=== PATIENT | female | born 1990 | race Caucasian/White ===

== ENCOUNTER 2023-08-05 11:33 | Emergency (ER) | payer BC, SELFPAY ==
[2023-08-05 11:38] VITALS: BP 107/72; PULSE 71; RESP 20; TEMP 36.6; O2SAT 99
[2023-08-05 13:15] LABS: Abs Immature Grans 0.01 10^3/uL (0.0-0.06); Absolute Basophil Count 0.05 10^3/uL (0.0-0.2); Absolute Eosinophil Count 0.04 10^3/uL (0.0-0.7); Absolute Lymphocyte Count 1.82 10^3/uL (1.2-3.4); Absolute Monocyte Count 0.31 10^3/uL (0.1-0.8); Absolute Neutrophil Count 3.29 10^3/uL (1.2-6.7); Basophils % 0.9 %; Eosinophils % 0.7 %; HCT 41.4 % (36.0-46.0); HGB 14.8 g/dL (11.2-15.7); Immature Grans % 0.2 %; MCH 33.1 pg (27.0-33.0); MCHC 35.7 % (32.0-36.0); MCV 93 fL (80-95); MPV 10.3 fL (8.0-11.0); Monocytes % 5.6 %; Neutrophils % 59.6 %; Platelet Count 259 10^3/uL (130-400); RBC 4.47 10^6/uL (3.93-5.22); RDW 11.4 % (11.7-14.6); RDW-SD 38.7 fL; WBC 5.52 10^3/uL (4.4-10.8)
[2023-08-05] MEDS: Ketorolac 15 MG/ML VIAL IVP (13:25)
[2023-08-05] MEDS: Droperidol 5 MG/2 ML VIAL 2.5 MG IVP (13:26)
[2023-08-05 13:35] VITALS: BP 122/75; PULSE 78; RESP 20; TEMP 36.4; O2SAT 94
[2023-08-05 13:35] LABS: ALT 23 U/L (14-59); AST 20 U/L (15-37); Albumin 4.7 g/dL (3.4-5.0); Alkaline Phosphatase 76 U/L (46-116); Anion Gap 11.2 mmol/L (3-11); BUN 10 mg/dL (7-18); Bilirubin, Total 1.41 mg/dL (0.2-1.0); CO2 26.8 mmol/L (21.0-32.0); CREATININE 0.9 mg/dL (0.55-1.02); Calcium 9.6 mg/dL (8.5-10.1); Chloride 105 mmol/L (98-107); Glucose 89 mg/dL (74-106); Potassium 3.6 mmol/L (3.5-5.1); Sodium 143 mmol/L (136-145); Total Protein 7.7 g/dL (6.4-8.2)
--- NOTE | 2023-08-05 13:37 | W.ED.GENAD ---
Discharge Plan Disposition Patient Disposition: Home Condition: Stable Discharge Details Clinical Impression: Anxiety, Headache Primary Care Provider: Unknown,Unknown ED Provider: Francisco Kennedy Home Meds and New Rx's Prescriptions: Continued cholecalciferol (vitamin D3) 25 mcg (1,000 unit) capsule See Rx Instructions PO .COMPLEX Rx Instructions: orally; dose unknown Discharge Instructions Instructions: Headache, Adult ED, Anxiety, Adult ED Additional Instructions: Please follow-up with Dr. Anglin. She will be happy to see you in follow-up. Please contact your primary care physician to arrange follow-up. Return to the ER immediately for any worsening or new concerning symptoms. Referrals: [facility] [Provider Group] Discharge Data Discharge Date/Time-TO BE ENTERED AT DEPARTURE: 08/05/23 13:50 HPI General Mode of arrival: ambulatory. Date/Time Provider Initiated Documentation: 08/05/23 11:39. Limitations to Documentation: no limitations. Information obtained by: patient. HPI Narrative: 32yo female with history of migraine headaches, here with chief complaint of migraine. Patient notes chronic headaches. Seems to be more frequent recently. She has associated light sensitivity and loss of appetite. 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 She further characterizes this feeling noting changes in behavior when experiencing headaches - for example she has made statements that she later regrets. Headache is not sudden onset and not currently severe. Worse yesterday. She has no associated dizziness. No visual changes. No fever or neck stiffness. Patient notes prior extensive workup including advanced diangostic brain imaging has been performed and non diagnostic. Patient contacted neurology office and staff advised she be evaluated in the ED. Related Data Home Medications ?Medication ?Instructions ?Recorded ?Confirmed cholecalciferol (vitamin D3) 25 See Rx Instructions PO .COMPLEX 01/20/22 05/18/22 mcg (1,000 unit) capsule Allergies Allergy/AdvReac Type Severity Reaction Status Date / Time lactose Allergy Verified 05/18/22 14:02 General Stated Complaint: Headache MATTHEW: 3 Review of Systems All systems reviewed & are unremarkable except as noted in HPI and below Constitutional Constitutional: Reports as per HPI, Denies fever(s) and Reports headache(s) ENT Ears, Nose, Mouth, and Throat: Reports headache(s) Cardiovascular Cardiovascular: Denies dyspnea Respiratory Respiratory: Denies dyspnea Neurologic Neurologic: Reports as per HPI and Reports headache(s) Psychiatric Psychiatric: Reports anxiety Exam Const General: cooperative and no acute distress HENMT Head: normocephalic and atraumatic Mouth: moist mucous membranes Eyes Sclera: normal sclerae EOM: EOM intact bilaterally Neck Neck: trachea midline Resp Auscultation: clear to auscultation bilaterally, no rales, no rhonchi and no wheezes Cardio Rate: regular rate and not tachycardic Rhythm: regular rhythm GI Palpation: soft, not firm, no guarding, no masses, not rigid and nontender Skin General skin exam: no rashes or lesions noted Neuro General: patient alert, patient awake, patient oriented x3 and tone normal Cranial Nerves: CN's II-XI intact bilaterally Cognition: normal cognition Speech: speech normal Gait: normal gait Motor: strength 5/5 throughout Sensory Exam: no sensory deficits noted Coordination: [id number] test normal Other: rapid alternating movement nl Extrem General: no edema Psych Appearance: grossly normal Mental Status: mental status grossly normal Speech and Movement: speech and movement normal Affect: anxious affect Course Vital Signs Vital signs: Vital Signs Temperature 36.6 C 08/05/23 11:38 Pulse 71 08/05/23 11:38 Respiratory Rate 20 08/05/23 11:38 Blood Pressure 107/72 08/05/23 11:38 Pulse Oximetry 99 08/05/23 11:38 Temperature 36.4 C 08/05/23 13:35 Temperature Source Skin 08/05/23 13:35 Pulse 78 08/05/23 13:35 Respiratory Rate 20 08/05/23 13:35 Blood Pressure 122/75 08/05/23 13:35 Blood Pressure Mean 90 08/05/23 13:35 Blood Pressure Position Sitting 08/05/23 13:35 Pulse Oximetry 94 08/05/23 13:35 Oxygen Delivery Method Room Air 08/05/23 13:35 Oxygen Flow Rate 0 08/05/23 13:35 Pain Level 0 08/05/23 13:35 Lab/Test Results Lab/Test Results: Laboratory Tests Range/Units 08/05/23 13:05 WBC (4.4-10.8) 10^3/uL 5.52 RBC (3.93-5.22) 10^6/uL 4.47 Hgb (11.2-15.7) g/dL 14.8 Hct (36.0-46.0) % 41.4 MCV (80-95) fL 93 MCH (27.0-33.0) pg 33.1 H MCHC (32.0-36.0) % 35.7 RDW (11.7-14.6) % 11.4 L Plt Count (130-400) 10^3/uL 259 MPV (8.0-11.0) fL 10.3 Immature Gran % % 0.2 Neutrophils % % 59.6 Lymphocytes % % 33.0 Monocytes % % 5.6 Eosinophils % % 0.7 Basophils % % 0.9 Nucleated RBC % (0.0-0.3) % 0.0 Absolute Neutrophils (1.2-6.7) 10^3/uL 3.29 Absolute Lymphocytes (1.2-3.4) 10^3/uL 1.82 Absolute Monocytes (0.1-0.8) 10^3/uL 0.31 Absolute Eosinophils (0.0-0.7) 10^3/uL 0.04 Absolute Basophils (0.0-0.2) 10^3/uL 0.05 Sodium (136-145) mmol/L 143 Potassium (3.5-5.1) mmol/L 3.6 Chloride (98-107) mmol/L 105 Carbon Dioxide (21.0-32.0) mmol/L 26.8 Anion Gap (3-11) mmol/L 11.2 H BUN (7-18) mg/dL 10 Creatinine (0.55-1.02) mg/dL 0.9 Est GFR (CKD-EPI 2020) (mL/min/1.73m2) 88.20 Glucose (74-106) mg/dL 89 Calcium (8.5-10.1) mg/dL 9.6 Total Bilirubin (0.2-1.0) mg/dL 1.41 H AST (15-37) U/L 20 ALT (14-59) U/L 23 Alkaline Phosphatase (46-116) U/L 76 Total Protein (6.4-8.2) g/dL 7.7 Albumin (3.4-5.0) g/dL 4.7 Medical Decision Making 32yo female with history of migraine headaches, PTSD, anxiety, here with increased frequency of headaches and associated perceived behavioral changes when experiencing headaches. Neurologically intact examination. No signs consistent with meningeal inflammation. History is not consistent with acute hemorrhage. Patient was treated with low dose ketamine for her headache. I spoke with Dr. Kelley and discussed ED presentation and course. She would be happy to see the patient in followup and does not have further recommendations at this time. On reassessment patient noted feeling more anxious and requesting discharge. I offered additional treatment and she declined. Plan for discharge with outpatient followup with neurology. Disposition decision was made weighing the risks and benefits of hospitalization versus outpatient treatment, the risk for further decompensation, and the patient's wishes. The patient was stable and requested discharge. Prior to discharge, my usual and customary return precautions were reviewed with the patient - this included follow-up instructions and reason to return to the emergency department if condition worsens, does not improve as expected, or other new concerns arise. Lab Data Lab results reviewed: Yes I reviewed the patient's lab results. Labs: Laboratory Tests Range/Units 08/05/23 13:05 WBC (4.4-10.8) 10^3/uL 5.52 RBC (3.93-5.22) 10^6/uL 4.47 Hgb (11.2-15.7) g/dL 14.8 Hct (36.0-46.0) % 41.4 MCV (80-95) fL 93 MCH (27.0-33.0) pg 33.1 H MCHC (32.0-36.0) % 35.7 RDW (11.7-14.6) % 11.4 L Plt Count (130-400) 10^3/uL 259 MPV (8.0-11.0) fL 10.3 Immature Gran % % 0.2 Neutrophils % % 59.6 Lymphocytes % % 33.0 Monocytes % % 5.6 Eosinophils % % 0.7 Basophils % % 0.9 Nucleated RBC % (0.0-0.3) % 0.0 Absolute Neutrophils (1.2-6.7) 10^3/uL 3.29 Absolute Lymphocytes (1.2-3.4) 10^3/uL 1.82 Absolute Monocytes (0.1-0.8) 10^3/uL 0.31 Absolute Eosinophils (0.0-0.7) 10^3/uL 0.04 Absolute Basophils (0.0-0.2) 10^3/uL 0.05 Sodium (136-145) mmol/L 143 Potassium (3.5-5.1) mmol/L 3.6 Chloride (98-107) mmol/L 105 Carbon Dioxide (21.0-32.0) mmol/L 26.8 Anion Gap (3-11) mmol/L 11.2 H BUN (7-18) mg/dL 10 Creatinine (0.55-1.02) mg/dL 0.9 Est GFR (CKD-EPI 2020) (mL/min/1.73m2) 88.20 Glucose (74-106) mg/dL 89 Calcium (8.5-10.1) mg/dL 9.6 Total Bilirubin (0.2-1.0) mg/dL 1.41 H AST (15-37) U/L 20 ALT (14-59) U/L 23 Alkaline Phosphatase (46-116) U/L 76 Total Protein (6.4-8.2) g/dL 7.7 Albumin (3.4-5.0) g/dL 4.7 Quality:SDOH Health Related Social Needs: No Data to Display PFSH All Active Problems Headache (Acute) Anxiety (Chronic) Nonspecific paroxysmal spell (Acute) Medical History PTSD (post-traumatic stress disorder) Anxiety Surgical History History of dental surgery Family History Father Hypertension Hypothyroidism Diabetes Cancer SKIN CANCER Social History Smoking/Tobacco Use Status: Never Smoking risk assessment performed?: Yes Alcohol Intake: never Drug use: Never Household members: none Number of Children: 0 current occupation: [employer] Do you feel safe at home: Yes Do you feel safe in your relationship?: Yes
[2023-08-05 13:48] VITALS: BP 107/72; PULSE 71; RESP 20; TEMP 36.4; O2SAT 94
[2023-08-05 13:50] VITALS: BP 107/72; PULSE 71; RESP 20; TEMP 36.4; O2SAT 94
== END 2023-08-05 13:50 | disposition home or self-care (01) ==
PROVIDERS: Emergency Provider Student in an Organized Health Care Education/Training Program
DX: R51.9 Headache, unspecified (principal); F41.9 Anxiety disorder, unspecified
CPT/HCPCS: 36415; 80053; 96374; 96375; 99284; 85025; 99283; J1790; J1885